=== PATIENT | male | born 1995 | race Caucasian/White ===

== ENCOUNTER 2017-12-17 11:58 | Emergency (ER) | payer SELFPAY ==
[~2017-12-17 11:58] MED LIST: BENZ100 PO; ZITH250T PO
[2017-12-17 12:19] VITALS: BP 135/73; PULSE 70; RESP 16; TEMP 98.4; O2SAT 100
--- NOTE | 2017-12-17 12:47 | PD ---
HPI Chief Complaint: Injury Time Seen by Provider: 12:32 Travel History International Travel<30 days: No Contact w/Intl Traveler<30days: No Traveled to known affect area: No History of Present Illness HPI 22-year-old male presents emergency department for evaluation of right ankle and foot pain started last night. Patient states that he was on his skateboard when he lost his board and landed on his right foot which is approximately 8 feet high. He says that he was able to walk on it immediately after the event however, he woke up this morning and had intense pain and was unable to work as normal. He says that the pain is worse with movement of the ankle and pointing at the toes, relieved somewhat with rest. His pain is mild to moderate in severity and nonradiating. Denies numbness or tingling of the extremity. Denies chronic medical issues or medication use. He has no other complaints today. PFSH Past Medical History Medical History: Denies Significant Hx Autoimmune Disease: No Cardiovascular Problems: No Diminished Hearing: No Genitourinary: No Musculoskeletal: No Neurologic: No Psychiatric: No Respiratory: No Immunizations Current: Yes Tetanus Vaccination: < 5 Years Influenza Vaccination: No ?: Not Past Surgical History Other Surgery: Yes (LEFT ARM) Social History Alcohol Use: No Tobacco Use: No Substance Use: No Allergies-Medications (Allergen,Severity, Reaction): Coded Allergies: morphine (Verified Allergy, Intermediate, n/v, agitated, 12/17/17) Reported Meds & Prescriptions Reported Meds & Active Scripts Active Ibuprofen 800 Mg Tab 800 Mg PO Q8H PRN 5 Days Tessalon Perles (Benzonatate) 100 Mg Cap 100 Mg PO TID PRN Zithromax Z-Balbir (Azithromycin) 250 Mg Tab 250 Mg PO DIRECTED 5 Days Review of Systems Except as stated in HPI: all other systems reviewed are Neg Physical Exam Narrative GENERAL: Well-nourished, well-developed patient. SKIN: Focused skin assessment warm/dry. HEAD: Normocephalic. EYES: No scleral icterus. No injection or drainage. NECK: Supple, trachea midline. No JVD or lymphadenopathy. CARDIOVASCULAR: Regular rate and rhythm without murmurs, gallops, or rubs. RESPIRATORY: Breath sounds equal bilaterally. No accessory muscle use. MUSCULOSKELETAL: No cyanosis, or edema. Right lower extremity-no tenderness palpation to the medial or lateral malleolus. No tenderness palpation to the anterior tibia. Mild tenderness palpation over the fourth metatarsal, mild ecchymosis. Ankle stable without laxity. Neurovascularly intact BACK: Nontender without obvious deformity. No CVA tenderness. Data Data Last Documented VS Vital Signs Date Time Temp Pulse Resp B/P (MAP) Pulse Ox O2 Delivery O2 Flow Rate FiO2 12/17/17 12:19 98.4 70 16 135/73 (93) 100 Orders Orders Foot, Complete ([id number]) (12/17/17 ) Support Splint (12/17/17 14:52) Ed Discharge Order (12/17/17 14:55) Shoe Cast (12/17/17 ) MDM Medical Decision Making Medical Screen Exam Complete: Yes Emergency Medical Condition: Yes Differential Diagnosis Right foot contusion, right foot fracture, right foot sprain Narrative Course 22-year-old male presents emergency department complaining of right foot pain after a skateboard accident that occurred last night. Vital signs are stable. Patient is neurovascular intact. Full range of motion of ankle and toes although he does have some tenderness with flexion-extension of his third through fifth toe. Last Impressions Foot X-Ray 12/17/17 0000 Signed Impressions: Service Date/Time: Sunday, December 17, 2017 12:51 - CONCLUSION: Unremarkable examination of the right foot. Ernie Jordan MD Patient be discharged with a postop shoe. Weightbearing as tolerated. Ibuprofen 800 mg 3 times daily as needed. If symptoms persist or worsen return to emergency department. Follow-up with orthopedic or semiconductor wafers tester. Diagnosis Primary Impression: Foot contusion Qualified Codes: S90.31XA - Contusion of right foot, initial encounter Referrals: Orthopedist Primary Care Physician Departure Forms: Tests/Procedures, Work Release Enter return to work date: December 21, 2017 Additional Instructions: Use ice or heat for symptom relief. If no contraindications, you may use Tylenol or Motrin per package instructions for your pain. Elevate the joint above the heart to reduce swelling. You may use compression with Oscar wrap or similar to reduce swelling. If symptoms persist or worsen, return to the emergency department. Follow up with your primary care physician within 2 days. Scripts Ibuprofen (Ibuprofen) 800 Mg Tab 800 MG PO Q8H Y for Pain/Inflammation for 5 Days, #15 TAB 0 Refills Prov: Koffi Tamayo MD 12/17/17 Disposition: 01 DISCHARGE HOME Condition: Stable Amita Stauffer December 17, 2017 12:47
[2017-12-17] MEDS ORDERED: IBUP1TAB7 PO (14:53)
--- NOTE | 2017-12-17 14:56 | RADRPT ---
EXAM DATE/TIME: 12/17/2017 12:51 [facility] COMPARISON: No previous studies available for comparison. INDICATIONS : Lateral right foot pain. Patient rolled his right foot skateboarding yesterday. MEDICAL HISTORY : None. SURGICAL HISTORY : None. ENCOUNTER: Initial ACUITY: 2 days PAIN SCORE: 6/10 LOCATION: Right lateral foot. FINDINGS: Three view examination of the right foot demonstrates no soft tissue swelling, dislocation, or fractu re. The tarsal bones appear intact. The interphalangeal and metatarsophalangeal joints are intact. The calcaneus is intact. Bony mineralization is normal. CONCLUSION: Unremarkable examination of the right foot. Ernie Jordan MD on December 17, 2017 at 14:53 Board Certified Radiologist. This report was verified electronically.
== END 2017-12-17 15:11 | disposition home or self-care (01) ==
LOC: PHEFT 11:58
DX: S90.31XA Contusion of right foot, initial encounter (principal); X58.XXXA Exposure to other specified factors, initial encounter; Y93.51 Activity, roller skating (inline) and skateboarding
CPT/HCPCS: 73630; 99283; L3260